=== PATIENT | male | born 1995 | race African-American/Black ===

== ENCOUNTER 2019-02-27 22:46 | Emergency (ER) | payer OTHER, SELFPAY ==
[2019-01-15 14:07] VITALS: BMI 24.2
[2019-02-27 22:46] VITALS: BP 141/79; PULSE 135; RESP 18; TEMP 38.8; O2SAT 94; BMI 29.0
--- NOTE | 2019-02-27 23:36 | ED.DCSUM_ITS ---
- ER Visit Summary Date of Service: 02/27/19 Chief Complaint: Fever and sore throat History of Present Illness: The patient is a 23 M who presents with fever and sore throat that has been getting worse over the past week. Patient states his pain is worse with swallowing, eating, and drinking. Patient admits to some mild nasal congestion and sinus pressure. Patient admits to some myalgias. Patient denies any headaches. Patient denies any cough. Patient denies any nausea or vomiting. Patient states his fever was up to 102. Physical Examination: Vital signs are stable. Patient does have a temperature of 102 here. Patient is in no acute distress. Oral mucosa is pink and moist. Oropharynx is erythematous. Neck is supple. Trachea is midline. There is tender anterior cervical lymphadenopathy noted. Heart was regular rate and rhythm. Lungs are clear and equal bilateral. Abdomen is soft and nontender. Cranial nerves II through XII are intact. There are no focal motor or sensory deficits noted. Emergency Department Course and Treatment: Patient met 4 out of 4 [facility] criteria. Patient was given his first dose of amoxicillin here. Patient was also given a dose of Tylenol here. Patient was given a prescription for amoxicillin. Patient was instructed to follow-up with his primary care physician in 5-7 days. Patient understood and was agreeable with the plan. All questions were answered. Disposition: Discharge home Impression: Strep pharyngitis This note was generated with [employer] dictation software. It may contain incorrect words, spelling, and punctuation that were not noted in review of the chart prior to signing ED Disposition - Plan for ED Patient: Disposition: Home or Assisted Living Diagnosis: Pharyngitis, streptococcal, acute Instructions: ED Strep Pharyngitis Poss Prescriptions: Amoxicillin 500 mg PO TID #30 tab Referrals: Shukri Gruber MD [Primary Care Provider] - 5-7 Days
[2019-02-27] MEDS: Acetaminophen 500 MG Tablet 1000 MG PO (23:42)
[2019-02-27] MEDS: AMOXICILLIN 500 MG CAPSULE PO (23:42)
[2019-02-27 23:45] VITALS: PULSE 101; RESP 22; O2SAT 100
--- NOTE | 2019-02-27 23:46 | ED.RN ---
THIS NURSE REVIEWED D/C INSTRUCTIONS WITH PT. PT VERBALIZED UNDERSTANDING OF INSTRUCTIONS. PT DENIES FURTHER NEEDS OR QUESTIONS AT THIS TIME
== END 2019-02-27 23:47 | disposition home or self-care (01) ==
PROVIDERS: Emergency Provider Emergency Medicine; Family Provider Internal Medicine; PCP Internal Medicine
DX: J02.0 Streptococcal pharyngitis (principal); Z72.0 Tobacco use
CPT/HCPCS: 99283